=== PATIENT | male | born 1980 ===

== ENCOUNTER 2020-12-03 10:01 | Outpatient (CLI) | payer OTHER ==
--- NOTE | 2020-12-03 10:54 | ULT ---
ULTRASOUND RENAL BILATERAL STANDARD: HISTORY: Flank pain. COMPARISON: None. FINDINGS: Real-time, villaseñor scale, and color evaluation of the kidneys and urinary bladder were performed. Multiple right-sided renal parapelvic cysts. History of right prior renal surgery. The right kidney measures 8.1 x 3.3 x 3.9 cm without mass or hydronephrosis. The left kidney measure s 13 x 6.3 x 7.4 cm without mass, hydronephrosis, or abnormal calcifications. Urinary bladder is unr emarkable. Normal postvoid volume. IMPRESSION: 1. Small right kidney with cortical defects from prior surgery as well as a parapelvic cyst. 2. No evidence for obstructive uropathy. POS: AH
== END 2020-12-03 10:02 | disposition home or self-care (01) ==
LOC: BICULT 10:01
PROVIDERS: ATTEND Physician Assistant
DX: R10.9 Unspecified abdominal pain (principal); N27.0 Small kidney, unilateral; N28.1 Cyst of kidney, acquired; R93.421 Abnormal radiologic findings on diagnostic imaging of right kidney
CPT/HCPCS: 76770